=== PATIENT | female | born 1960 | race Hispanic/Latino ===

== ENCOUNTER 2020-11-25 11:53 | Day surgery (SDC) | payer OTHER ==
[~2020-11-25 11:53] MED LIST: IOHEXOL 300 MG/ML 50ML IV ONE
[2020-11-25] MEDS ORDERED: LACTATED RINGERS 1,000 ML IV SCH (12:45)
[2020-11-25] MEDS ORDERED: ceFAZolin/Water 2 GM/20 ML 2 GM/20 ML SYRINGE IV NR (13:00)
[2020-11-25] MEDS ORDERED: LIDOCAINE MPF (2%) 20 MG/1 ML VIAL 5 ML ONE (13:32)
[2020-11-25] MEDS ORDERED: fentaNYL 100 MCG/2 ML INJ ONE (13:33)
[2020-11-25] MEDS ORDERED: propofoL 200 MG/20 ML VIAL IV ONE (13:33)
--- NOTE | 2020-11-25 13:38 | XRay Report ---
ABDOMEN 1 VIEW INDICATION / CLINICAL INFORMATION: KIDNEY STONE. COMPARISON: None available. FINDINGS: Limited study due to body habitus. TUBES / LINES: None. BOWEL GAS PATTERN: No significant abnormality. FREE AIR / EXTRALUMINAL GAS: None. ADDITIONAL FINDINGS: No significant additional findings. No suspicious calcifications identified. Pro minent degenerative changes at the L1-L2 disc space, not further characterized. IMPRESSION: 1. No acute radiographic abnormality of the abdomen. No suspicious calcifications detected, though ev aluation is limited. 2. Prominent degenerative changes at the L1-L2 disc space, not further characterized. [facility] for further evaluation. Signer Name: David Perez MD Signed: 11/25/2020 1:33 PM Workstation Name: [id number]
[2020-11-25] MEDS ORDERED: ONDANSETRON 4 MG/2 ML INJ IV PRN (13:49)
[2020-11-25] MEDS ORDERED: HYDROmorphone 1 MG/1 ML INJ IV PRN ×2 (13:49)
--- NOTE | 2020-11-25 13:50 | Anesthesia Day of Surgery ---
Anesthesia Day of Surgery - Day of Surgery Patient Examined: Yes Patient H&P Reviewed: Yes Patient is NPO: Yes
--- NOTE | 2020-11-25 13:51 | Anesthesia Consultation ---
Anesthesia Consult and Med Hx Date of service: 11/25/20 - Airway Anesthetic Teeth Evaluation: Good ROM Head & Neck: Adequate Mental/Hyoid Distance: Adequate Mallampati Class: Class II Intubation Access Assessment: Good - Pre-Operative Health Status ASA Pre-Surgery Classification: ASA3 Proposed Anesthetic Plan: General - Pulmonary Hx Respiratory Symptoms: No (+2FS) Hx Sleep Apnea: Yes (Probable) - Cardiovascular System Hx Hypertension: No - Central Nervous System Hx Psychiatric Problems: Yes (Anxiety/Depression) - Gastrointestinal Hx Gastroesophageal Reflux Disease: Yes - Endocrine Hx Renal Disease: Yes (Stones) Hx Non-Insulin Dependent Diabetes: Yes - Other Systems Hx Cancer: Yes (Colon) Hx Obesity: Yes (BMI 43)
[2020-11-25] MEDS ORDERED: MIDAZOLAM 2 MG/2 ML INJ IV NR (14:00)
--- NOTE | 2020-11-25 14:56 | Post Operative Note ---
Date of procedure: 11/25/20 Pre-op diagnosis: left ureteral stone Post-op diagnosis: same Findings: pus and stone Procedure: cysto stent rpg Anesthesia: GETA Surgeon: AURELIO VALDEZ Estimated blood loss: none Pathology: list (c and s) Specimen disposition: to lab Condition: stable Disposition: PACU
--- NOTE | 2020-11-25 14:58 | Discharge Summary ---
Short Stay Discharge Plan Activity: other (no strainig) Weight Bearing Status: Full Weight Bearing Diet: diabetic Special Instructions: other (inc fluids ) Durable Medical Equipment Needed Upon Discharge: other (has j stent ) Follow up with: ANGELIA KILPATRICK MD [Primary Care Provider] - 7 Days AURELIO VALDEZ MD [Staff Physician] - 7 Days
[2020-11-25] MEDS ORDERED: ONDANSETRON 4 MG/2 ML INJ ONE (15:01)
--- NOTE | 2020-11-25 15:23 | Operative Report ---
DATE OF SURGERY: 11/25/2020 PREOPERATIVE DIAGNOSIS: Left upper ureteral stone. POSTOPERATIVE DIAGNOSIS: Left upper ureteral stone with evidence of some purulent material in the left renal pelvis. PROCEDURE PERFORMED: Cystoscopy, retrograde, left double-J stent. SURGEON: Dr. Alejandro. ANESTHESIA: General. FINDINGS: This is a woman who presented with intermittent flank pain. She is yet to pass a stone. We could not see anything on KUB. She is moderately obese and diabetic. She now presents for treatment. DESCRIPTION OF PROCEDURE: The patient was brought to the operating room and placed on the operating table. Following induction of anesthesia , placed in lithotomy position, prepped and draped in usual sterile fashion. Cystourethroscopy showed no bladder lesions. There was no bleeding. Retrograde showed the narrowing where the stone was in the upper ureter. Once a wire got up there, we placed an open-ended and there was purulent material, just debris out there was bushra pus. We did not think because of her diabetes and because of the purulent type of material, we felt it was safer not to do ureteroscopy. We placed a 7 Green[place]ic double J without difficulty. The patient tolerated the procedure well and brought to recovery in stable condition. She will be on antibiotics and will follow up with second stage ureteroscopy at a later date. TID: [id number] RECEIPT: [id number] GENARO/BLAS
[2020-11-25] MEDS ORDERED: GENTAMICIN/NS 120MG/100ML 120 MG/100 ML BAG IV ONE (15:30)
--- NOTE | 2020-11-25 16:12 | Post Anesthesia Evaluation ---
- Post Anesthesia Evaluation Patient Participated: Yes Airway Patent: Yes Stable Respiratory Function: Yes Nausea/Vomiting: No Temp > 96.8F: Yes Pain Manageable: Yes Adequeate Hydration: Yes Anesthesia Complications: No Block Receding Appropriately: Not Applicable Patient on Ventilator: No
[2020-11-25 16:31] VITALS: BP 137/67
--- NOTE | 2020-11-25 16:34 | Fluoroscopy Report ---
Fluoroscopy retrograde urography HISTORY: Left ureteral stone COMPARISON: None. FINDINGS: 18 seconds of fluoroscopy time was provided by radiology during retrograde urography by uro logy. 5 fluoroscopic images are presented demonstrating contrast agent injected in the left collectin g system with a moderate to large stone in the proximal left ureter. Subsequent images demonstrate pl acement of a left ureteral stent with good drainage of the left collecting system. The stone was not removed per the operative notes. IMPRESSION: Left ureteral stone. Left ureteral stent placement which appears in good position. Signer Name: Augusto Escoto Jr, MD Signed: 11/25/2020 4:30 PM Workstation Name: [id number]
== END 2020-11-25 16:20 | disposition home or self-care (01) ==
LOC: OR 11:53
PROVIDERS: ATTEND Urology
DX: N13.2 Hydronephrosis with renal and ureteral calculous obstruction (principal); G47.30 Sleep apnea, unspecified; E66.9 Obesity, unspecified; E11.9 Type 2 diabetes mellitus without complications; F32.9 Major depressive disorder, single episode, unspecified; F41.9 Anxiety disorder, unspecified; Z88.8 Allergy status to other drugs, medicaments and biological substances; Z79.899 Other long term (current) drug therapy; Z79.82 Long term (current) use of aspirin; Z85.038 Personal history of other malignant neoplasm of large intestine; Z98.890 Other specified postprocedural states; Z68.41 Body mass index [BMI] 40.0-44.9, adult
CPT/HCPCS: 52332; 74018; 74420; 82962; 87086; C1726; C1758; C1769; C2617; J0690; J1580; J2250; J2405; J2704; J3010; J7120; Q9967

== ENCOUNTER 2020-12-13 09:23 | Day surgery (SDC) | payer OTHER ==
[~2020-12-13 09:23] MED LIST changes: -IOHEXOL 300 MG/ML 50ML IV ONE; +LACTATED RINGERS 1,000 ML IV SCH; +MIDAZOLAM 2 MG/2 ML INJ IV NR
--- NOTE | 2020-12-13 10:27 | Anesthesia Consultation ---
Anesthesia Consult and Med Hx Date of service: 12/13/20 - Airway Anesthetic Teeth Evaluation: Good ROM Head & Neck: Adequate Mental/Hyoid Distance: Adequate Mallampati Class: Class III Intubation Access Assessment: Possibly Difficult - Pre-Operative Health Status ASA Pre-Surgery Classification: ASA3 Proposed Anesthetic Plan: General - Pulmonary Hx Smoking: No Hx Respiratory Symptoms: No - Cardiovascular System Hx Hypertension: No Hx Heart Attack/AMI: No Hx Percutaneous Transluminal Coronary Angioplasty (PTCA): No - Central Nervous System CVA: No Hx Back Pain: Yes Hx Psychiatric Problems: Yes (Anxiety/Depression) - Gastrointestinal Hx Gastroesophageal Reflux Disease: Yes - Endocrine Hx Renal Disease: No Hx Liver Disease: No Hx Non-Insulin Dependent Diabetes: Yes Hx Thyroid Disease: No - Other Systems Hx Cancer: Yes (hx colon ca) Hx Obesity: Yes (BMI 43) - Additional Comments Anesthesia Medical History Comments: No hx anesthetic complications. Off ASA at least 1 wk.
[2020-12-13] MEDS ORDERED: HYDROcodone/ACETAMINOPHEN 5-325 MG TAB PO PRN (10:28)
[2020-12-13] MEDS ORDERED: fentaNYL 100 MCG/2 ML INJ IV PRN (10:28)
[2020-12-13] MEDS ORDERED: ONDANSETRON 4 MG/2 ML INJ IV PRN (10:28)
--- NOTE | 2020-12-13 10:28 | Anesthesia Day of Surgery ---
Anesthesia Day of Surgery - Day of Surgery Patient Examined: Yes Patient H&P Reviewed: Yes Patient is NPO: Yes
[2020-12-13] MEDS ORDERED: ceFAZolin/STERILE WATER 2 GM/20 ML SYRINGE IV NR (11:00)
--- NOTE | 2020-12-13 11:58 | Post Operative Note ---
Date of procedure: 12/13/20 Pre-op diagnosis: ureteral stones Post-op diagnosis: same Procedure: cysto ureteroscopy Anesthesia: GETA Surgeon: AURELIO VALDEZ Estimated blood loss: none Pathology: none Condition: stable
--- NOTE | 2020-12-13 11:59 | Discharge Summary ---
Short Stay Discharge Plan Activity: other Weight Bearing Status: Full Weight Bearing Diet: low fat, low cholesterol, low salt, diabetic Durable Medical Equipment Needed Upon Discharge: other (j stent ) Follow up with: ANGELIA KILPATRICK MD [Primary Care Provider] - 7 Days AURELIO VALDEZ MD [Staff Physician] - 7 Days
[2020-12-13] MEDS ORDERED: IOHEXOL 300 MG/ML 50ML IV ONE (12:36)
[2020-12-13] MEDS ORDERED: ONDANSETRON 4 MG/2 ML INJ ONE (13:16)
[2020-12-13] MEDS ORDERED: propofoL 200 MG/20 ML VIAL IV ONE (13:26)
[2020-12-13] MEDS ORDERED: LIDOCAINE MPF (2%) 20 MG/1 ML VIAL 5 ML ONE (13:26)
[2020-12-13] MEDS ORDERED: fentaNYL 100 MCG/2 ML INJ ONE (13:26)
[2020-12-13] MEDS ORDERED: PHENAZOPYRIDINE 200 MG TAB PO SCH ×2 (14:00→14:10)
[2020-12-13] MEDS ORDERED: PHENAZOPYRIDINE 200 MG TAB PO ONE (14:14)
--- NOTE | 2020-12-13 15:41 | Operative Report ---
DATE OF SURGERY: 12/13/2020 PREOPERATIVE DIAGNOSIS: Left upper ureteral stone. POSTOPERATIVE DIAGNOSIS: Left upper ureteral stone. PROCEDURE PERFORMED: Cystoscopy, left retrograde, left ureteroscopy, laser of the stone, reinsertion of double-J stent with a string. SURGEON: Dr. Alejandro. ANESTHESIA: General. FINDINGS: This is a woman with a large stone, evidence of pyonephrosis in the past. She now presents for second stage ureteroscopy and stone treatment. DESCRIPTION OF PROCEDURE: The patient was brought to the OR and placed on the operating table. Following induction of anesthesia, placed in lithotomy position, prepped and draped in the usual sterile fashion. The patient is moderately obese. Left stent was withdrawn. A wire coiled in the kidney. A second wire coiled with the ureteral access, a double lumen catheter. At this point, flexible ureteroscopy in the upper ureter revealed prominent stone about 4 mm. It was lasered, partially pushed back in the kidney where it was continued laser. The patient tolerated the procedure well. A double J coiled in the kidney, . We left the string brought to recovery in stable condition. TID: [id number] RECEIPT: [id number] GENARO/JESENIA/YULISA
[2020-12-13 15:45] VITALS: BP 134/61
--- NOTE | 2020-12-13 16:09 | Fluoroscopy Report ---
FLUOROSCOPY RETROGRADE UROGRAPHY HISTORY: Left ureteral stone FINDINGS: Fluoroscopy was provided by radiology during retrograde urography by the urologist. Only im ages of the left collecting system are presented. Pharm[employer] Det[employer] film of the abdomen demonstrates a left urete ral stent which appears in good position. Ureteroscopy was performed. Per the operative notes, a left ureteral stone is seen and removed by use of a laser. The left ureteral stent was replaced with good drainage of the left collecting system on the final image. Please correlate with the procedural repo rt as needed. Fluoroscopy time: 47 seconds Fluoroscopic images: 9 Signer Name: Augusto Escoto Jr, MD Signed: 12/13/2020 4:05 PM Workstation Name: [id number]
--- NOTE | 2020-12-13 16:23 | Post Anesthesia Evaluation ---
- Post Anesthesia Evaluation Patient Participated: Yes Airway Patent: Yes Stable Respiratory Function: Yes Nausea/Vomiting: No Temp > 96.8F: Yes Pain Manageable: Yes Adequeate Hydration: Yes Anesthesia Complications: No
== END 2020-12-13 14:40 | disposition home or self-care (01) ==
LOC: OR 09:23
PROVIDERS: ATTEND Urology
DX: N20.1 Calculus of ureter (principal); E78.00 Pure hypercholesterolemia, unspecified; G47.30 Sleep apnea, unspecified; K21.9 Gastro-esophageal reflux disease without esophagitis; E66.9 Obesity, unspecified; E11.9 Type 2 diabetes mellitus without complications; F32.9 Major depressive disorder, single episode, unspecified; F41.9 Anxiety disorder, unspecified; Z88.8 Allergy status to other drugs, medicaments and biological substances; Z79.899 Other long term (current) drug therapy; Z79.82 Long term (current) use of aspirin; Z85.038 Personal history of other malignant neoplasm of large intestine; Z98.890 Other specified postprocedural states; Z68.42 Body mass index [BMI] 45.0-49.9, adult
CPT/HCPCS: 52356; 74420; 82962; C1758; C1769; C2617; J0690; J2250; J2405; J2704; J3010; J7120; Q9967